=== PATIENT | female | born 1950 | race African-American/Black ===

== ENCOUNTER 2016-08-04 09:44 | Emergency (ER) | payer OTHER ==
[2016-08-04] MEDS ORDERED: AMOXicillin 250 MG CAP ONE (09:56)
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
== END 2016-08-04 10:05 | disposition home or self-care (01) ==
LOC: BURERS 09:44
DX: K08.89 Other specified disorders of teeth and supporting structures (principal); I11.0 Hypertensive heart disease with heart failure; I50.9 Heart failure, unspecified; E11.9 Type 2 diabetes mellitus without complications; F41.9 Anxiety disorder, unspecified; F32.9 Major depressive disorder, single episode, unspecified
CPT/HCPCS: 99282

== ENCOUNTER 2016-08-19 10:33 | Outpatient (CLI) | payer OTHER ==
[2016-08-19 11:58] LABS: Hemoglobin A1c 6.1 % (4.0-6.0)
[2016-08-19 12:25] LABS: #Basophils 0.1 thou/uL (0.0-0.2); #Eosinphils 0.5 thou/uL (0.0-0.7); #Lymphocytes 2.8 thou/uL (1.20-3.40); #Monocytes 0.4 thou/uL (0.11-0.59); %Basophils 1.6 % (0.0-1.0); %Eosinophils 5.9 % (0.0-10.0); %Monocytes 5.2 % (0.0-10.0); Hematocrit 51.8 % (36.0-47.0); Mean Platelet Volume 8.4 fL (7.4-10.4); White Blood Cell (WBC) Count 7.8 thou/uL (4.8-10.8)
[2016-08-19 12:31] LABS: ALT (SGPT) 15 U/L (0-55); AST (SGOT) 13 U/L (5-34); Alkaline Phosphatase 77 U/L (40-150); Anion Gap 14 mmol/L (10-20); BUN (Urea Nitrogen) 20 mg/dL (9.8-20.1); Bilirubin, Total 0.4 mg/dL (0.2-1.2); Calc. Creatinine Clearance 0 mL/min (70-130); Carbon Dioxide 34 mmol/L (23-31); Chloride 98 mmol/L (98-107); Estimated GFR-MDRD 55; Globulin 3.8 g/dL (2.4-3.5); LDL Cholesterol, Calculated 151 mg/dL; Protein, Total 7.8 g/dL (5.8-8.1)
== END 2016-08-19 10:34 | disposition home or self-care (01) ==
LOC: HPCALD 10:33
PROVIDERS: ATTEND Family Medicine
DX: E78.2 Mixed hyperlipidemia (principal); E11.9 Type 2 diabetes mellitus without complications; I10 Essential (primary) hypertension; E03.9 Hypothyroidism, unspecified
CPT/HCPCS: 36415; 80053; 80061; 83036; 84439; 84443; 85025

== ENCOUNTER 2016-11-06 14:04 | Emergency (ER) | payer OTHER ==
[2016-11-06] MEDS ORDERED: cloNIDine HCl 0.1 MG TAB ONE (14:21)
[2016-11-06] MEDS ORDERED: HYDROcodone/Acetaminophen 10/325 mg Tablet ONE (14:21)
[2016-11-06 14:57] LABS: ALT (SGPT) 17 U/L (0-55); AST (SGOT) 21 U/L (5-34); Albumin 3.7 g/dL (3.4-4.8); Alkaline Phosphatase 91 U/L (40-150); Anion Gap 11 mmol/L (10-20); BUN (Urea Nitrogen) 15 mg/dL (9.8-20.1); Bilirubin, Total 0.3 mg/dL (0.2-1.2); Calc. Creatinine Clearance 0 mL/min (70-130); Calcium 9.5 mg/dL (7.8-10.44); Carbon Dioxide 30 mmol/L (23-31); Chloride 104 mmol/L (98-107); Estimated GFR-MDRD 64; Globulin 3.6 g/dL (2.4-3.5); Glucose 87 mg/dL (80-115); Potassium 4.5 mmol/L (3.5-5.1); Protein, Total 7.3 g/dL (5.8-8.1); Sodium 140 mmol/L (136-145)
== END 2016-11-06 15:26 | disposition home or self-care (01) ==
LOC: BURERS 14:04
DX: I11.0 Hypertensive heart disease with heart failure (principal); I50.9 Heart failure, unspecified; M10.9 Gout, unspecified; E11.9 Type 2 diabetes mellitus without complications; F41.9 Anxiety disorder, unspecified; F32.9 Major depressive disorder, single episode, unspecified; F20.9 Schizophrenia, unspecified; Z79.899 Other long term (current) drug therapy
CPT/HCPCS: 36415; 80053

== ENCOUNTER 2016-11-07 10:34 | Emergency (ER) | payer OTHER ==
[2016-11-07] MEDS ORDERED: Ondansetron HCl/PF 4 MG/2 ML Vial ONE (10:58)
[2016-11-07 11:28] LABS: #Basophils 0.1 thou/uL (0.0-0.2); #Eosinphils 0.1 thou/uL (0.0-0.7); #Lymphocytes 0.9 thou/uL (1.20-3.40); #Monocytes 0.3 thou/uL (0.11-0.59); #Neutrophils 4.5 thou/uL (1.40-6.50); %Basophils 1.2 % (0.0-1.0); %Eosinophils 2.1 % (0.0-10.0); %Lymphocytes 15.6 % (21.0-51.0); %Monocytes 4.9 % (0.0-10.0); %Neutrophils 76.3 % (42.0-75.0); ALT (SGPT) 13 U/L (0-55); AST (SGOT) 15 U/L (5-34); Albumin 3.9 g/dL (3.4-4.8); Alkaline Phosphatase 97 U/L (40-150); Anion Gap 12 mmol/L (10-20); BUN (Urea Nitrogen) 11 mg/dL (9.8-20.1); Bilirubin, Total 0.5 mg/dL (0.2-1.2); Calc. Creatinine Clearance 0 mL/min (70-130); Calcium 9.7 mg/dL (7.8-10.44); Carbon Dioxide 29 mmol/L (23-31); Chloride 101 mmol/L (98-107); Estimated GFR-MDRD 73; Globulin 3.7 g/dL (2.4-3.5); Glucose 103 mg/dL (80-115); Hemoglobin 16.4 g/dL (12.0-16.0); Lipase 12 U/L (8-78); Mean Corpuscular HGB CONC 32.4 g/dL (32.0-36.0); Mean Corpuscular Hemoglobin 30.3 pg (27.0-31.0); Mean Corpuscular Volume 93.6 fl (81.0-99.0); Mean Platelet Volume 9.3 fL (7.4-10.4); Platelet Count 248 thou/uL (130-400); Protein, Total 7.6 g/dL (5.8-8.1); RBC Distribution Width 13.5 % (11.5-14.5); Red Blood Cell (RBC) Count 5.39 mill/uL (4.20-5.40); Sodium 138 mmol/L (136-145); White Blood Cell (WBC) Count 5.9 thou/uL (4.8-10.8)
[2016-11-07 11:57] LABS: Blood, Urine Negative (Negative); Clarity Clear (Clear); Glucose, Urine (Dipstick) Negative (Negative); Leukocyte Negative (Negative); Nitrite Negative (Negative); Urobilinogen 0.2 mg/dL (0.2-1.0); pH, Urine 5.5 (5.0-9.0)
[2016-11-07 12:01] LABS: Bilirubin Negative (Negative); Protein, Urine (Dipstick) Negative (Neg-Trace)
== END 2016-11-07 12:10 | disposition home or self-care (01) ==
LOC: BURERS 10:34
DX: I11.0 Hypertensive heart disease with heart failure (principal); I50.9 Heart failure, unspecified; A08.4 Viral intestinal infection, unspecified; E11.9 Type 2 diabetes mellitus without complications; F41.9 Anxiety disorder, unspecified; F32.9 Major depressive disorder, single episode, unspecified; F20.9 Schizophrenia, unspecified
CPT/HCPCS: 80053; 81003; 83690; 85025; 93005; 96374; J2405

== ENCOUNTER 2016-12-04 03:30 | Emergency (ER) | payer OTHER ==
[2016-12-04] MEDS ORDERED: Ketorolac Tromethamine 30 MG/ML VIAL ONE (03:55)
[2016-12-04] MEDS ORDERED: Diazepam 5 MG TAB ONE (03:55)
== END 2016-12-04 04:08 | disposition home or self-care (01) ==
LOC: BURERS 03:30
DX: G44.209 Tension-type headache, unspecified, not intractable (principal); M10.9 Gout, unspecified; E11.9 Type 2 diabetes mellitus without complications; I11.0 Hypertensive heart disease with heart failure; I50.9 Heart failure, unspecified; F41.9 Anxiety disorder, unspecified; F32.9 Major depressive disorder, single episode, unspecified; Z79.84 Long term (current) use of oral hypoglycemic drugs; Z79.899 Other long term (current) drug therapy
CPT/HCPCS: 96372; J1885

== ENCOUNTER 2017-02-08 12:53 | Emergency (ER) | payer OTHER ==
[2017-02-08] MEDS ORDERED: Ketorolac Tromethamine 60 MG/2 ML VIAL ONE (13:08)
[2017-02-08] MEDS ORDERED: predniSONE 20 MG TAB ONE (13:17)
== END 2017-02-08 13:59 | disposition home or self-care (01) ==
LOC: BURERS 12:53
DX: M10.9 Gout, unspecified (principal); E11.9 Type 2 diabetes mellitus without complications; I11.0 Hypertensive heart disease with heart failure; I50.9 Heart failure, unspecified; F32.9 Major depressive disorder, single episode, unspecified; F41.9 Anxiety disorder, unspecified; F20.9 Schizophrenia, unspecified; Z87.891 Personal history of nicotine dependence
CPT/HCPCS: 36416; 96372; J1885; J7506

== ENCOUNTER 2017-03-18 16:18 | Emergency (ER) | payer OTHER ==
[~2017-03-18 16:18] MED LIST: Iopamidol 370 76% 100 ML VIAL ONE
[2017-03-18 17:22] LABS: Bilirubin Negative (Negative); Blood, Urine Negative (Negative); Clarity Clear (Clear); Glucose, Urine (Dipstick) Negative (Negative); Leukocyte Negative (Negative); Nitrite Negative (Negative); Specific Gravity, Urine 1.015 (1.005-1.030)
[2017-03-18 17:23] LABS: Protein, Urine (Dipstick) Negative (Neg-Trace)
[2017-03-18 17:30] LABS: Eosinophils 5 % (0-10); Hemoglobin 16.6 g/dL (12.0-16.0); Lymphocytes 26 % (21-51); MDiff Complete? YES; Mean Corpuscular HGB CONC 29.4 g/dL (32.0-36.0); Mean Corpuscular Hemoglobin 28.9 pg (27.0-31.0); Mean Corpuscular Volume 98.4 fl (81.0-99.0); Mean Platelet Volume 8.7 fL (7.4-10.4); Monocytes 9 % (0-10); Neutrophil 60 % (42-75); Platelet Count 270 thou/uL (130-400); Polychromasia SLIGHT = 2-3 cells (100X) (0-2/hpf); RBC Distribution Width 14.3 % (11.5-14.5); Red Blood Cell (RBC) Count 5.73 mill/uL (4.20-5.40); White Blood Cell (WBC) Count 6.8 thou/uL (4.8-10.8)
[2017-03-18 17:31] LABS: CKMB 2.6 ng/mL (0-6.6); Troponin I Less than 0.010 ng/mL (< 0.028)
[2017-03-18 17:42] LABS: ALT (SGPT) 21 U/L (8-55); AST (SGOT) 24 U/L (5-34); Albumin 3.6 g/dL (3.4-4.8); Alkaline Phosphatase 105 U/L (40-150); Anion Gap 14 mmol/L (10-20); BUN (Urea Nitrogen) 15 mg/dL (9.8-20.1); Bilirubin, Total 0.4 mg/dL (0.2-1.2); Calc. Creatinine Clearance 0 mL/min (70-130); Calcium 9.3 mg/dL (7.8-10.44); Carbon Dioxide 34 mmol/L (23-31); Chloride 98 mmol/L (98-107); Estimated GFR-MDRD 53; Globulin 3.9 g/dL (2.4-3.5); Glucose 147 mg/dL (80-115); Protein, Total 7.5 g/dL (6.0-8.3); Sodium 141 mmol/L (136-145)
[2017-03-18 17:43] LABS: PTT 26.7 SEC (22.9-36.1); Prothrombin Time 13.1 SEC (12.0-14.7)
[2017-03-18 17:45] LABS: D-Dimer Test 0.54 *mcg/mL (0.27-0.43)
[2017-03-18 17:48] LABS: Potassium 4.1 mmol/L (3.5-5.1)
[2017-03-18] MEDS ORDERED: Furosemide 40 MG/4 ML VIAL ONE (19:19)
--- NOTE | 2017-03-18 20:43 | RAD ---
PORTABLE CHEST 03/18/17 An AP portable film at 1620 is compared with an 02/19/14 study. The heart is mildly to moderately enlarged but there are no congestive changes. No large pleural eff usions are indicated. No focal infiltrates were appreciated. IMPRESSION: Cardiomegaly with no acute findings. POS: HOME
--- NOTE | 2017-03-18 20:45 | RAD ---
CHEST TWO VIEWS: 03/18/17 PA and lateral views were done after the PA film. The heart is enlarged but there are no convincing congestive changes. There is some thickening or fl uid in the minor fissure. There is a little haziness in the left base that could be atelectasis. The leatha are prominent in size which is probably his usual, looking at older films. IMPRESSION: No definite acute changes. POS: HOME
--- NOTE | 2017-03-18 21:13 | CT ---
CT ANGIO OF THE CHEST: 03/18/[address] of the chest was performed after a bolus of IV contrast. Axial slices were acquired, then oblique sagittal reconstructions through the pulmonary arteries were obtained. There is moderately good filling of the central and middle branches of the pulmonary arteries with n o defects to suggest emboli. Small distal emboli would not be seen on this study. Thus, there is no current evidence for pulmonary embolism. The central pulmonary arteries are somewhat large measuring up to 3 cm in diameter, sometimes a finding in pulmonary hypertension. There is no sign of aortic d issection or aneurysm. Both right and left coronary arteries are filling. The heart is slightly enla rged but there is no pericardial fluid. No mediastinal mass or significant adenopathy was seen. There are no pleural effusions. There is a little thickening along the minor fissure and a few strea k areas in the lungs that may be atelectasis. No large lobar infiltrates were appreciated. Scans through the upper abdomen showed no acute change. No adrenal masses were appreciated, though n either gland was seen completely. A rounded area just anterior to the spleen on scan 93 appears to b e the bottom portion of the greater curve of the stomach seen in cross-section. IMPRESSION: Some scattered areas of atelectasis but no evidence of pulmonary embolism or other acute changes. POS: HOME
== END 2017-03-18 21:21 | disposition short-term general hospital (02) ==
LOC: BURERS 16:18
DX: R09.02 Hypoxemia (principal); R07.81 Pleurodynia; M10.9 Gout, unspecified; I11.0 Hypertensive heart disease with heart failure; I50.9 Heart failure, unspecified; E11.9 Type 2 diabetes mellitus without complications; F41.9 Anxiety disorder, unspecified; F32.9 Major depressive disorder, single episode, unspecified; F20.9 Schizophrenia, unspecified; Z87.891 Personal history of nicotine dependence
CPT/HCPCS: 51701; 71010; 71020; 71275; 80053; 81003; 82553; 83880; 84484; 85025; 85379; 85610; 85730; 93005; 94760; 96374; A4216; A4353; J1940; J7620

== ENCOUNTER 2017-05-07 15:12 | Emergency (ER) | payer OTHER ==
[2017-05-07] MEDS ORDERED: Albuterol Sulfate 1.25 MG/3 ML NEB ONE (16:06)
[2017-05-07] MEDS ORDERED: methylPREDNISolone Sod Succ/PF 125 MG/2 ML VIAL ONE (16:06)
[2017-05-07 17:56] LABS: #Basophils 0.1 thou/uL (0.0-0.2); #Eosinphils 0.2 thou/uL (0.0-0.7); #Lymphocytes 1.5 thou/uL (1.20-3.40); #Monocytes 0.6 thou/uL (0.11-0.59); %Basophils 1.3 % (0.0-1.0); %Eosinophils 2.3 % (0.0-10.0); %Lymphocytes 20.2 % (21.0-51.0); %Monocytes 7.6 % (0.0-10.0); %Neutrophils 68.6 % (42.0-75.0); Hemoglobin 16.5 g/dL (12.0-16.0); Mean Corpuscular HGB CONC 30.4 g/dL (32.0-36.0); Mean Corpuscular Hemoglobin 29.7 pg (27.0-31.0); Mean Corpuscular Volume 97.6 fl (81.0-99.0); Mean Platelet Volume 8.6 fL (7.4-10.4); Platelet Count 172 thou/uL (130-400); RBC Distribution Width 14.1 % (11.5-14.5); Red Blood Cell (RBC) Count 5.58 mill/uL (4.20-5.40); White Blood Cell (WBC) Count 7.3 thou/uL (4.8-10.8)
[2017-05-07] MEDS ORDERED: Nitroglycerin 2% Ointment 1 INCH/1 GM Packet ONE (18:05)
[2017-05-07 18:14] LABS: CKMB 2.4 ng/mL (0-6.6); Troponin I Less than 0.010 ng/mL (< 0.028)
[2017-05-07 18:37] LABS: Bilirubin Negative (Negative); Blood, Urine Negative (Negative); Glucose, Urine (Dipstick) Negative (Negative); Leukocyte Trace (Negative); Nitrite Negative (Negative); Protein, Urine (Dipstick) Trace mg/dL (Neg-Trace); Specific Gravity, Urine 1.015 (1.005-1.030); Urobilinogen 0.2 mg/dL (0.2-1.0)
[2017-05-07 18:38] LABS: Clarity Hazy (Clear)
[2017-05-07 18:46] LABS: Bacteria/HPF 1+ HPF (None Seen); RBC/HPF 0-3 HPF (0-3); Squamous Epithelial 0-3 HPF (0-3); WBC/HPF 0-3 HPF (0-3)
--- NOTE | 2017-05-07 23:53 | RAD ---
RIGHT ANKLE THREE VIEWS: Date: 05-07-17 FINDINGS: Soft tissue swelling is present bilaterally, but especially laterally. No fracture was visible at th is time. All bones appeared intact. IMPRESSION: Soft tissue swelling. POS: HOME
--- NOTE | 2017-05-07 23:59 | RAD ---
PORTABLE CHEST: Date: 05-07-17 An AP portable film at 1621 is compared with a 03-18-17 study. FINDINGS: The heart is minimally enlarged and changed in size. There does appear to be some slight congestion of the vessels and there is some fluid in the minor fissure, more so than there was previously. No l arge effusions were seen otherwise. The central pulmonary arteries are very large which may signify pulmonary hypertension. Thickening has been seen in the minor fissure before, but today it is more p rominent than before leading me to believe that there is also a little fluid here. IMPRESSION: Chronic changes but probably some very slight congestion since 03-18-17. POS: HOME
== END 2017-05-07 18:48 | disposition short-term general hospital (02) ==
LOC: BURERS 15:12
DX: S93.401A Sprain of unspecified ligament of right ankle, initial encounter (principal); J44.1 Chronic obstructive pulmonary disease with (acute) exacerbation; I10 Essential (primary) hypertension; R09.02 Hypoxemia; W01.0XXA Fall on same level from slipping, tripping and stumbling without subsequent striking against object, initial encounter
CPT/HCPCS: 71010; 81003; 81015; 82553; 84484; 85025; 87086; 93005; 94640; 94760; 96372; J2930; J7620

== ENCOUNTER 2017-07-26 09:44 | Emergency (ER) | payer MEDICARE, OTHER ==
[2017-07-26] MEDS ORDERED: Oseltamivir 75 MG CAP ONE (10:32)
[2017-07-26] MEDS ORDERED: Benzonatate 100 MG CAP ONE (10:32)
--- NOTE | 2017-07-26 19:56 | RAD ---
CHEST TWO VIEWS 07/26/17 Comparison is made with prior studies dated 03/18/17 and 05/07/17. The patient has been observed to have rather large central pulmonary arteries on prior chest films an d a 03/18 CT angio of the chest. The heart is normal in size today. There are a few areas of linear streaking as well as prominence of the minor fissure, but they more have the appearance of atelectasis or scarring. There is a small amount of increased streaking in the left base. I cannot exclude an early infiltrate here. There is a rounded area in the right hilum that measures 3.4 cm in size. Given the prior chest x-rays , this is most likely a prominent pulmonary artery, however, it has a much more rounded appearance to day than on the prior studies. In view of this, it would probably be prudent to go ahead and do an el ective CT of the chest to remove all doubt without there being any mass here. There certainly was non e on the 03/18/17 CT. This would also afford a second look at the slight amount of basilar streaking, p articularly on the left. Arteriosclerotic change is present as usual. IMPRESSION: 1. Slight basilar streaking, particularly left lower lobe. Cannot exclude a minimal infiltrate h ere. 2. Patient has chronically large pulmonary arteries, but today the left hilum is much rounder th an it was in April. This is probably artifactual caused by the large pulmonary artery and the patie nt being turned exactly the right direction. Nevertheless, I recommend an elective CT be done to be a bsolutely certain there is no pathology developing here. Code T POS: HOME
== END 2017-07-26 11:32 | disposition home or self-care (01) ==
LOC: BURERS 09:44
DX: J11.1 Influenza due to unidentified influenza virus with other respiratory manifestations (principal); M10.9 Gout, unspecified; E11.9 Type 2 diabetes mellitus without complications; I11.0 Hypertensive heart disease with heart failure; I50.9 Heart failure, unspecified; J44.9 Chronic obstructive pulmonary disease, unspecified; F41.9 Anxiety disorder, unspecified; F20.9 Schizophrenia, unspecified; Z79.82 Long term (current) use of aspirin; Z79.899 Other long term (current) drug therapy; Z87.891 Personal history of nicotine dependence
CPT/HCPCS: 71046

== ENCOUNTER 2017-11-05 07:53 | Emergency (ER) | payer MEDICARE, MEDICAID, OTHER ==
[2017-11-05] MEDS ORDERED: Acetaminophen 500 MG TAB ONE (08:36)
== END 2017-11-05 08:54 | disposition home or self-care (01) ==
LOC: BURERS 07:53
DX: S40.012A Contusion of left shoulder, initial encounter (principal); S10.93XA Contusion of unspecified part of neck, initial encounter; I11.0 Hypertensive heart disease with heart failure; I50.9 Heart failure, unspecified; E66.9 Obesity, unspecified; M10.9 Gout, unspecified; E11.9 Type 2 diabetes mellitus without complications; J44.9 Chronic obstructive pulmonary disease, unspecified; F41.9 Anxiety disorder, unspecified; F32.9 Major depressive disorder, single episode, unspecified; F20.9 Schizophrenia, unspecified; Z87.891 Personal history of nicotine dependence; Z79.84 Long term (current) use of oral hypoglycemic drugs; Z79.899 Other long term (current) drug therapy; V47.5XXA Car driver injured in collision with fixed or stationary object in traffic accident, initial encounter; W22.11XA Striking against or struck by driver side automobile airbag, initial encounter
CPT/HCPCS: 36416; 99284

== ENCOUNTER 2017-11-22 08:42 | Emergency (ER) | payer MEDICARE, MEDICAID | END 2017-11-22 09:36 | disposition home or self-care (01) | LOC: BURERS 08:42 | DX: G89.29 Other chronic pain (principal); M10.9 Gout, unspecified; I11.0 Hypertensive heart disease with heart failure; I50.9 Heart failure, unspecified; J44.9 Chronic obstructive pulmonary disease, unspecified; F41.9 Anxiety disorder, unspecified; F20.9 Schizophrenia, unspecified; Z87.891 Personal history of nicotine dependence | CPT/HCPCS: 99283 ==

== ENCOUNTER 2018-07-14 18:52 | Emergency (ER) | payer MEDICARE, MEDICAID ==
[2018-07-14] MEDS ORDERED: Clindamycin 150 MG CAP ONE (19:24)
[2018-07-14] MEDS ORDERED: traMADol HCl 50 MG TAB ONE (19:24)
== END 2018-07-14 19:35 | disposition home or self-care (01) ==
LOC: BURERS 18:52
DX: L03.011 Cellulitis of right finger (principal); M10.9 Gout, unspecified; E11.9 Type 2 diabetes mellitus without complications; I11.0 Hypertensive heart disease with heart failure; I50.9 Heart failure, unspecified; J44.9 Chronic obstructive pulmonary disease, unspecified; F41.9 Anxiety disorder, unspecified; F32.9 Major depressive disorder, single episode, unspecified; F20.9 Schizophrenia, unspecified; Z87.891 Personal history of nicotine dependence; Z79.899 Other long term (current) drug therapy; Z79.84 Long term (current) use of oral hypoglycemic drugs; Z79.51 Long term (current) use of inhaled steroids
CPT/HCPCS: 99283

== ENCOUNTER 2018-07-16 07:39 | Emergency (ER) | payer MEDICARE, OTHER ==
[2018-07-16 08:33] LABS: #Basophils 0.2 thou/uL (0.0-0.2); #Eosinphils 0.2 thou/uL (0.0-0.7); #Lymphocytes 1.7 thou/uL (1.20-3.40); #Monocytes 0.6 thou/uL (0.11-0.59); #Neutrophils 5.5 thou/uL (1.40-6.50); %Basophils 1.9 % (0.0-1.0); %Eosinophils 2.8 % (0.0-10.0); %Lymphocytes 20.5 % (21.0-51.0); %Monocytes 7.6 % (0.0-10.0); %Neutrophils 67.2 % (42.0-75.0); Mean Corpuscular Hemoglobin 29.8 pg (27.0-31.0); Mean Corpuscular Volume 96.1 fL (78.0-98.0); Mean Platelet Volume 9.2 fL (7.4-10.4); Platelet Count 197 thou/uL (130-400); RBC Distribution Width 12.9 % (11.5-14.5); White Blood Cell (WBC) Count 8.2 thou/uL (4.8-10.8)
[2018-07-16 08:35] LABS: Anion Gap 10 mmol/L (10-20); BUN (Urea Nitrogen) 17 mg/dL (9.8-20.1); Calc. Creatinine Clearance 0 mL/min (70-130); Calcium 8.9 mg/dL (7.8-10.44); Carbon Dioxide 31 mmol/L (23-31); Chloride 100 mmol/L (98-107); Estimated GFR-MDRD 69; Glucose 98 mg/dL (80-115); Potassium 4.3 mmol/L (3.5-5.1); Sodium 137 mmol/L (136-145); Uric Acid 5.3 mg/dL (2.6-6.0)
[2018-07-16] MEDS ORDERED: predniSONE 20 MG TAB ONE (10:12)
--- NOTE | 2018-07-16 10:35 | RAD ---
RIGHT HAND THREE VIEWS: Date: 07-16-18 FINDINGS: Soft tissue swelling is seen, particularly dorsally and in the second and third digits. There is an e rosion of the second metacarpal head that is nonarticular. There may be some mild narrowing of the th ird through fifth MCP joints. There is some faint periarticular calcifications seen around areas of t he third digit near the PIP joint. No fractures were seen. IMPRESSION: Soft tissue swelling and erosions, particularly of the second MCP joint. Given the nonarticular locat ion, the possibility of gout is raised. See CT report to follow. POS: HOME
--- NOTE | 2018-07-16 10:50 | CT ---
CT OF THE RIGHT HAND WITH CONTRAST: Date: 07/16/[address] of the right hand was done in response to soft tissue swelling which started in the third d igit and progressed elsewhere in the hand and second digit. Axial slices were acquired, followed by c oronal and sagittal reconstructions. FINDINGS: A clear erosion is seen on the dorsal aspect of the second metacarpal head near the MCP joint. It is nonarticular in location and has overhanging edges. Some tiny erosions are suggested near some of the IP joints of the second and third digits. Additionally, there is tremendous soft tissue swelling andre noelle, in particularly around the second MCP joint. Some periarticular calcification is seen in this location and there is a suggestion of some possible periarticular calcification around the third PIP joint. Some fluid is suggested in the radiocarpal joint, though it is not large enough to probably be drainable. IMPRESSION: The findings are most compatible with a diagnosis of gout given the nonarticular erosions and periart icular calcifications with soft tissue swelling. While infection is theoretically in the differential diagnosis, it seems a bit less likely as I would expect any given infected joint to be far more affe cted than is seen here. There are no articular erosions or carpal abnormalities to suggest rheumatoid disease. Follow-up is obviously needed. Findings discussed with Dr. Cuba at 1009 hours on 07/16/18. CODE CR. POS: HOME
== END 2018-07-16 10:34 | disposition home or self-care (01) ==
LOC: BURERS 07:39
DX: M10.9 Gout, unspecified (principal); I11.0 Hypertensive heart disease with heart failure; I50.9 Heart failure, unspecified; E11.9 Type 2 diabetes mellitus without complications; J44.9 Chronic obstructive pulmonary disease, unspecified; G47.30 Sleep apnea, unspecified; F41.9 Anxiety disorder, unspecified; F32.9 Major depressive disorder, single episode, unspecified; F20.9 Schizophrenia, unspecified; Z87.891 Personal history of nicotine dependence; Z79.899 Other long term (current) drug therapy; Z79.84 Long term (current) use of oral hypoglycemic drugs
CPT/HCPCS: 36415; 80048; 84550; 85025; J7506

== ENCOUNTER 2018-07-24 11:52 | Emergency (ER) | payer MEDICARE, OTHER ==
[2018-07-24 12:27] LABS: #Basophils 0.1 thou/uL (0.0-0.2); #Eosinphils 0.2 thou/uL (0.0-0.7); #Lymphocytes 2.7 thou/uL (1.20-3.40); #Monocytes 0.4 thou/uL (0.11-0.59); #Neutrophils 5.4 thou/uL (1.40-6.50); %Basophils 0.9 % (0.0-1.0); %Eosinophils 1.9 % (0.0-10.0); %Lymphocytes 31.2 % (21.0-51.0); %Monocytes 4.9 % (0.0-10.0); %Neutrophils 61.2 % (42.0-75.0); Hemoglobin 14.7 g/dL (12.0-16.0); Mean Corpuscular HGB CONC 31.1 g/dL (32.0-36.0); Mean Corpuscular Hemoglobin 29.8 pg (27.0-31.0); Mean Corpuscular Volume 95.6 fL (78.0-98.0); Mean Platelet Volume 8.4 fL (7.4-10.4); Platelet Count 287 thou/uL (130-400); RBC Distribution Width 13.4 % (11.5-14.5); Red Blood Cell (RBC) Count 4.93 mill/uL (4.20-5.40); White Blood Cell (WBC) Count 8.8 thou/uL (4.8-10.8)
[2018-07-24 12:41] LABS: ALT (SGPT) 15 U/L (8-55); AST (SGOT) 14 U/L (5-34); Albumin 3.4 g/dL (3.4-4.8); Alkaline Phosphatase 70 U/L (40-150); Anion Gap 13 mmol/L (10-20); BUN (Urea Nitrogen) 19 mg/dL (9.8-20.1); Bilirubin, Total 0.2 mg/dL (0.2-1.2); Calc. Creatinine Clearance 0 mL/min (70-130); Calcium 9.4 mg/dL (7.8-10.44); Carbon Dioxide 35 mmol/L (23-31); Chloride 98 mmol/L (98-107); Estimated GFR-MDRD 67; Globulin 3.3 g/dL (2.4-3.5); Glucose 134 mg/dL (80-115); Protein, Total 6.7 g/dL (6.0-8.3); Sodium 142 mmol/L (136-145)
[2018-07-24] MEDS ORDERED: Ketorolac Tromethamine 60 MG/2 ML VIAL ONE (13:32)
[2018-07-24] MEDS ORDERED: methylPREDNISolone Sod Succ/PF 125 MG/2 ML VIAL ONE (14:16)
== END 2018-07-24 14:28 | disposition home or self-care (01) ==
LOC: BURERS 11:52
DX: M10.9 Gout, unspecified (principal); I11.0 Hypertensive heart disease with heart failure; I50.9 Heart failure, unspecified; E11.9 Type 2 diabetes mellitus without complications; J44.9 Chronic obstructive pulmonary disease, unspecified; F41.9 Anxiety disorder, unspecified; F20.9 Schizophrenia, unspecified; F32.9 Major depressive disorder, single episode, unspecified; Z87.891 Personal history of nicotine dependence; Z79.899 Other long term (current) drug therapy; Z79.84 Long term (current) use of oral hypoglycemic drugs
CPT/HCPCS: 80053; 85025; 85652; 96372; J1885; J2930

== ENCOUNTER 2018-12-23 08:30 | Emergency (ER) | payer MEDICARE, OTHER ==
[2018-12-23] MEDS ORDERED: Oxymetazoline HCl 0.05% (30 ML BOT) ONE (09:09)
== END 2018-12-23 09:27 | disposition home or self-care (01) ==
LOC: BURERS 08:30
DX: R04.0 Epistaxis (principal); F41.9 Anxiety disorder, unspecified; F32.9 Major depressive disorder, single episode, unspecified; F20.9 Schizophrenia, unspecified; Z87.891 Personal history of nicotine dependence

== ENCOUNTER 2019-01-08 16:47 | Emergency (ER) | payer MEDICARE, MEDICAID | END 2019-01-08 17:05 | disposition home or self-care (01) | LOC: BURERS 16:47 | DX: R04.0 Epistaxis (principal); M10.9 Gout, unspecified; I50.9 Heart failure, unspecified; I11.0 Hypertensive heart disease with heart failure; G47.30 Sleep apnea, unspecified; F41.9 Anxiety disorder, unspecified; F32.9 Major depressive disorder, single episode, unspecified; F20.9 Schizophrenia, unspecified; Z87.891 Personal history of nicotine dependence; Z79.84 Long term (current) use of oral hypoglycemic drugs; Z79.899 Other long term (current) drug therapy | CPT/HCPCS: 99281 ==

== ENCOUNTER 2019-02-11 12:41 | Emergency (ER) | payer MEDICARE, MEDICAID ==
[2019-02-11] MEDS ORDERED: Acetaminophen 500 MG TAB ONE (13:28)
[2019-02-11] MEDS ORDERED: Ibuprofen 800 MG TAB ONE (13:28)
== END 2019-02-11 14:11 | disposition home or self-care (01) ==
LOC: BURERS 12:41
DX: I11.0 Hypertensive heart disease with heart failure (principal); I50.9 Heart failure, unspecified; R51 Headache; J44.9 Chronic obstructive pulmonary disease, unspecified; F41.9 Anxiety disorder, unspecified; E11.9 Type 2 diabetes mellitus without complications; F20.9 Schizophrenia, unspecified; G47.30 Sleep apnea, unspecified; M10.9 Gout, unspecified; Z63.79 Other stressful life events affecting family and household; Z87.891 Personal history of nicotine dependence
CPT/HCPCS: 94640; J7620

== ENCOUNTER 2019-06-24 00:18 | Emergency (ER) | payer MEDICARE, OTHER ==
[2019-06-24] MEDS ORDERED: methylPREDNISolone Sod Succ/PF 125 MG/2 ML VIAL ONE (01:01)
[2019-06-24 01:09] LABS: ALT (SGPT) 9 U/L (8-55); AST (SGOT) 12 U/L (5-34); Albumin 3.5 g/dL (3.4-4.8); Alkaline Phosphatase 96 U/L (40-110); Anion Gap 15 mmol/L (10-20); BUN (Urea Nitrogen) 16 mg/dL (9.8-20.1); Bilirubin, Total 0.4 mg/dL (0.2-1.2); Calc. Creatinine Clearance 0 mL/min (70-130); Calcium 8.9 mg/dL (7.8-10.44); Carbon Dioxide 29 mmol/L (23-31); Chloride 100 mmol/L (98-107); Estimated GFR-MDRD 69; Globulin 3.2 g/dL (2.4-3.5); Glucose 126 mg/dL (80-115); Potassium 4.5 mmol/L (3.5-5.1); Protein, Total 6.7 g/dL (6.0-8.3); Sodium 139 mmol/L (136-145)
[2019-06-24 01:13] LABS: Base Excess-Venous 3.2 mmol/L (-2.0 to 3.0); Bicarbonate (HCO3v) 29.7 mmol/L (22.0-28.0); CO2 Tension (PvCO2) 49.9 mmHg (40.0-50.0); Calcium, Ionized 1.11 mmol/L (See Comments:); Chloride 98 mmol/L (98-107); Hemoglobin - Calc 19.4 g/dL (12.0-16.0); Potassium 4.1 mmol/L (3.5-5.1); Sodium 137 mmol/L (138-145); T. Carbon Dioxide 31.3 mmol/L (22.0-28.0); vO2 Saturation-calc 90.9 % (60.0-85.0)
[2019-06-24 01:28] LABS: Hemoglobin 14.9 g/dL (12.0-16.0); Mean Corpuscular HGB CONC 29.2 g/dL (32.0-36.0); Mean Corpuscular Hemoglobin 26.8 pg (27.0-31.0); Mean Platelet Volume 10.6 fL (7.4-10.4); Platelet Count 199 thou/uL (130-400); RBC Distribution Width 15.1 % (11.5-14.5); Red Blood Cell (RBC) Count 5.56 mill/uL (4.20-5.40); White Blood Cell (WBC) Count 10.1 thou/uL (4.8-10.8)
[2019-06-24 01:29] LABS: Anisocytosis SLIGHT = 6-15 cells (100X) (0-5/hpf); Platelet Morphology Comment Appears Adequate
[2019-06-24 01:30] LABS: Band 1 % (5-11); Neutrophil 71 % (42-75)
[2019-06-24 01:31] LABS: Eosinophils 1 % (0-10); Lymphocytes 19 % (21-51); Monocytes 7 % (0-10)
[2019-06-24 01:32] LABS: MDiff Complete? YES
--- NOTE | 2019-06-24 08:47 | RAD ---
PORTABLE AP CHEST XRAY: HISTORY: Right hand pain and foot pain as well as back pain. The patient is complaining of shortness of breat h with exertion. COMPARISON: 07/26/2017. FINDINGS: Cardiac silhouette is within normal limits. Pulmonary vasculature is upper limits of normal. Again noted is nodular mass-like prominence involving the right hilar region unchanged when compared to the prior exam. CT angiogram of the thorax obtained shortly after this examination does not demonstrate evidence of a mass, and this likely represents prominence of the pulmonary artery. No consolidation or pleural fluid is seen. Vascular calcifications are again seen in the thoracic aorta. IMPRESSION: No acute cardiopulmonary process. POS: [facility]
--- NOTE | 2019-06-24 08:59 | CT ---
PRELIMINARY REPORT/[facility]/EMERGENCY AFTER HOURS PROCEDURE: PROCEDURE: CTA Chest with IV Contrast Material . HISTORY: Positive d-dimer. TECHNIQUE: Axial images were performed with multiplanar and 3-D (maximum intensity projection and ayanna face-shaded) reconstructions. The patient was given iodinated nonionic IV contrast . COMPARISON: None . FINDINGS: Mild atherosclerotic calcifications involving aorta with tortuosity and no aneurysm or dissection. No evidence of pulmonary embolus. Mediastinum and hilar regions show no masses or lymphadenopathy. Heart size upper limits of normal with no pericardial fluid. No pulmonary consolidation, masses, or pleural fluid. Some linear scar versus discoid atelectasis randy ng bases. Visualized upper abdomen is unremarkable. No acute bony abnormality. IMPRESSION: No pulmonary embolus or aortic dissection. Heart size upper limits of normal. No pulmonary consolidation. ELECTRONICALLY SIGNED BY: Edinson Mcqueen MD Jun 24, 2019 3:08:27 AM BUILDING ENGINEER This report is intended for review by the ordering physician only, in accordance of law. If you recei ve this report in error, please call [facility] at [phone]. FINAL REPORT EMERGENCY AFTER HOURS CT ANGIOGRAM THORAX WITH IV CONTRAST AND 3D RECONSTRUCTIONS: HISTORY: Dyspnea. COMPARISON: 03/18/17. IMPRESSION: 1. No CT evidence of a pulmonary embolus involving the central or proximal segmental pulmonary arter ies. The more distal segmental and subsegmental pulmonary arteries are not well opacified. Mild promi nence of the central pulmonary arteries relative to the thoracic aorta, which can be seen with pulmon kodi artery hypertension. 2. Vascular calcifications in the thoracic aorta. The thoracic aorta is normal in caliber without ev idence of an aortic dissection. 3. Findings likely attributable to bibasilar atelectasis. Findings are in agreement with the preliminary report by [facility]. POS: [facility]
[2019-06-24] MEDS ORDERED: Iopamidol 370 76% 100 ML VIAL ONE (13:33)
== END 2019-06-24 03:25 | disposition home or self-care (01) ==
LOC: BURERS 00:18
DX: M10.9 Gout, unspecified (principal); J44.1 Chronic obstructive pulmonary disease with (acute) exacerbation; E11.9 Type 2 diabetes mellitus without complications; I11.0 Hypertensive heart disease with heart failure; I50.9 Heart failure, unspecified; G47.30 Sleep apnea, unspecified; K21.9 Gastro-esophageal reflux disease without esophagitis; F41.9 Anxiety disorder, unspecified; F32.9 Major depressive disorder, single episode, unspecified; F20.9 Schizophrenia, unspecified; Z87.891 Personal history of nicotine dependence; Z79.899 Other long term (current) drug therapy; Z79.84 Long term (current) use of oral hypoglycemic drugs
CPT/HCPCS: 71045; 71275; 80053; 82330; 82803; 83880; 84484; 85025; 85379; 93005; 96374; J2930; J7620; Q9967

== ENCOUNTER 2019-07-07 05:26 | Emergency (ER) | payer MEDICARE, OTHER ==
[2019-07-07] MEDS ORDERED: Cyclobenzaprine 10 MG TAB ONE (05:53)
== END 2019-07-07 06:07 | disposition home or self-care (01) ==
LOC: BURERS 05:26
DX: M10.9 Gout, unspecified (principal); M54.6 Pain in thoracic spine; F41.9 Anxiety disorder, unspecified; F32.9 Major depressive disorder, single episode, unspecified; F20.9 Schizophrenia, unspecified; K21.9 Gastro-esophageal reflux disease without esophagitis; G47.30 Sleep apnea, unspecified; E11.9 Type 2 diabetes mellitus without complications; Z87.891 Personal history of nicotine dependence; Z79.84 Long term (current) use of oral hypoglycemic drugs; Z79.899 Other long term (current) drug therapy; Z79.891 Long term (current) use of opiate analgesic
CPT/HCPCS: 99283